=== PATIENT | female | born 1960 | race Caucasian/White ===

== ENCOUNTER 2019-11-13 10:55 | Emergency (ER) | payer OTHER ==
[~2019-11-13] VITALS: Wt 68.0 kg
[~2019-11-13 10:55] MED LIST: Motrin,Rufen800 MG PO
[2019-11-13] MEDS ORDERED: IBUPROFEN600 MG PO (12:03)
== END 2019-11-13 12:23 | disposition home or self-care (01) ==
LOC: ED 10:55
DX: S93.602A Unspecified sprain of left foot, initial encounter (principal); X58.XXXA Exposure to other specified factors, initial encounter; Y93.89 Activity, other specified; Y92.89 Other specified places as the place of occurrence of the external cause; Y99.8 Other external cause status